=== PATIENT | male | born 1960 | race Caucasian/White ===

== ENCOUNTER 2016-05-30 12:27 | Emergency (ER) | payer BC, OTHER ==
[2016-05-30 12:35] VITALS: BP 118/87; PULSE 67; TEMP 97.9; BMI 22.3
[2016-05-30] MEDS ORDERED: AMOX TR/POT CLAV 875MG/125MG TABLETS (FP) ONE (13:01)
--- NOTE | 2016-05-30 13:04 | PDOC ---
History of Present Illness - General Chief Complaint: Bite Stated Complaint: RIGHT HAND DOG BITE Time Seen by Provider: 05/30/16 12:48 - History of Present Illness Initial Comments: 05/30/16 13:12 Chief complaint: Dog bite History of present illness: Patient was bitten by his aging dog who has a brain tumor. Bite sustained this morning on the right palm. No pain, distal numbness or tingling, or limited range of motion. No swelling or drainage. Review of systems: No fever/chills, chest pain, shortness of breath, abdominal pain, nausea, vomiting, diarrhea, distal numbness tingling weakness or limited motion of the fingers. Past medical history: Significant for stomach cancer on chemotherapy Social/family history reviewed and noncontributory Physical exam: Alert and oriented well-developed well-nourished no acute distress cooperative Examination normal except for the right hand. There is a superficial abrasion approximately 3-5 mm in size in the area of the mid fourth and fifth metacarpals , volar aspect of the. There appears to be no puncture wound in no palpable foreign body. There is no swelling or erythema warmth or tenderness. Examination of all 5 digits appears to be normal, with full sensation, full tendon function, and good capillary refill Impression: Dog bite, superficial abrasion Plan: The wound was thoroughly scrubbed and irrigated with normal saline. Bacitracin and gauze dressing was applied. Patient was administered tetanus booster and put on Augmentin. He was instructed to follow-up immediately if there was any sign of infection, and signs of infection were reviewed with he and his . Fully ambulatory and in no pain or other distress upon discharge with his to follow-up as directed. Past History - Past Medical History Allergies/Adverse Reactions: Allergies Allergy/AdvReac Type Severity Reaction Status Date / Time No Known Allergies Allergy Verified 05/30/16 12:28 Home Medications: Ambulatory Orders Amoxicillin/Potassium Clav [Augmentin 875-125 Tablet] 1 tab PO BID #10 tablet Enoxaparin Sodium [Lovenox] 80 mg SQ BID 05/30/16 Loratadine [Claritin] 10 mg PO DAILY 05/30/16 Lorazepam [Ativan] 0.5 mg PO DAILY 05/30/16 Metoclopramide HCl [Reglan] 10 mg PO BID 05/30/16 Morphine Sulfate 15 mg PO TID 05/30/16 Ondansetron HCl [Zofran] 4 mg PO Q6H 05/30/16 Sennosides [Senna] 8.6 mg PO DAILY 05/30/16 Cancer: Yes (STOMACH) Other medical history: PE AND DVT - Psycho/Social/Smoking Cessation Hx Anxiety: No Suicidal Ideation: No Smoking History: Never smoked Hx Alcohol Use: Yes Drug/Substance Use Hx: Yes Substance Use Type: Alcohol, Marijuana *Physical Exam - Vital Signs Last Vital Signs Temp Pulse Resp BP Pulse Ox 97.9 F 67 18 118/87 100 05/30/16 12:27 05/30/16 12:27 05/30/16 12:27 05/30/16 12:27 05/30/16 12:27 *DC/Admit/Observation/Transfer Diagnosis at time of Disposition: Dog bite Qualifiers: Encounter type: initial encounter Qualified Code(s): W54.0XXA - Bitten by dog, initial encounter - Discharge Dispostion Disposition: HOME Condition at time of disposition: Improved Admit: No - Prescriptions Prescriptions: Amoxicillin/Potassium Clav [Augmentin 875-125 Tablet] 1 tab PO BID #10 tablet - Referrals Referrals: Juaquin Gross MD [Staff Physician] - - Patient Instructions Printed Discharge Instructions: How to Care for a Domestic Animal Bite Additional Instructions: Rest and elevate to minimize risk of infection Wound care as directed, apply antibiotic ointment and cover Recheck immediately if there is sign of infection, including increased pain, swelling, redness, or drainage.
[2016-05-30] MEDS: DIPHTH,PERTUSS(ACELL),TET 0.5 ML DISP.SYRIN IM ONE (13:07)
[2016-05-30] MEDS: AMOX TR/POT CLAV 875MG/125MG TABLETS (FP) PO ONE (13:09)
== END 2016-05-30 13:15 | disposition home or self-care (01) ==
LOC: FER 12:27
PROC: 3E0234Z Introduction of Serum, Toxoid and Vaccine into Muscle, Percutaneous Approach (ICD-10-PCS; principal; 2016-05-30)
DX: S60.571A Other superficial bite of hand of right hand, initial encounter (principal); W54.0XXA Bitten by dog, initial encounter; Y93.89 Activity, other specified; Y92.018 Other place in single-family (private) house as the place of occurrence of the external cause; C16.9 Malignant neoplasm of stomach, unspecified; Z86.718 Personal history of other venous thrombosis and embolism; Z86.711 Personal history of pulmonary embolism
CPT/HCPCS: 90715; 99282-25